=== PATIENT | female | born 1995 | race Caucasian/White ===

== ENCOUNTER 2017-04-04 00:18 | Emergency (ER) | payer BC ==
[2017-04-04] MEDS ORDERED: HYDROcodone/Acetaminophen 10/325 mg Tablet ONE (00:24)
[2017-04-04] MEDS ORDERED: Ibuprofen 800 MG TAB ONE (00:25)
--- NOTE | 2017-04-04 07:49 | RAD ---
RIGHT ANKLE 3 VIEWS: HISTORY: Injury, right ankle pain. FINDINGS/IMPRESSION: Soft tissue swelling is present. The ankle mortise is maintained. No acute fracture or dislocation is seen. There is an osteochondral defect involving the lateral of the talar dome. Further evaluati on with MRI should be performed. CODE T POS: DAVID
== END 2017-04-04 01:25 | disposition home or self-care (01) ==
LOC: NAV ERS 00:18
DX: S93.401A Sprain of unspecified ligament of right ankle, initial encounter (principal); T23.172A Burn of first degree of left wrist, initial encounter; T23.171A Burn of first degree of right wrist, initial encounter; F41.9 Anxiety disorder, unspecified; Z79.899 Other long term (current) drug therapy; V89.2XXA Person injured in unspecified motor-vehicle accident, traffic, initial encounter; W22.11XA Striking against or struck by driver side automobile airbag, initial encounter